=== PATIENT | male | born 1995 | race Caucasian/White ===

== ENCOUNTER 2018-11-29 15:27 | Emergency (ER) | payer OTHER, SELFPAY ==
[2018-11-29 15:31] VITALS: BP 124/80; PULSE 80; RESP 16; TEMP 36.6; O2SAT 78
--- NOTE | 2018-11-29 16:07 | ED.GENADUL_ITS ---
Discharge Plan Disposition Patient Disposition: HOME Discharge Details Chief Complaint: Laceration Clinical Impression: Laceration of hand, left ED Provider: Joe Shipley Discharge Instructions Instructions: Laceration (ED) Additional Instructions: Minimize use of left thumb until wound completely healed. Please keep dressing intact for the next 48 hours. Change dressing daily thereafter monitor for signs of infection including increased warmth, redness, discharge, pain or swelling. Return to the ED for suture removal in 12 days. Please contact your primary care physician to arrange follow-up. Return to the ER for any worsening or new concerning symptoms. Medical Decision Making 16:10 -- 23-year-old male here with laceration to dorsal left thumb over MCP with extension into fibrous tissue suspect tendon versus joint capsule. Plan to discuss with orthopedics. I will apply LET. --Patient evaluated by orthopedics, Dr. Last, no tendon laceration. Recommends primary closure of skin. Skin closed after copious sterile irrigation with local anesthetic. No complications. Usual and customary discharge instructions were provided. HPI General Mode of arrival: ambulatory . Date/Time Provider Initiated Documentation: 11/29/18 16:06 . Limitations to Documentation: no limitations . Information obtained by: patient . HPI Narrative: 23-year-old male presents with chief complaint of laceration. Patient notes he was sharpening a knife and knife accidentally slipped and cut his left dorsal thumb. This occurred just prior to arrival. Wound is been bleeding. Bleeding improved with dressing. He has some associated numbness of the finger that he attributes to pressure being held over dressing. He denies weakness. Unsure of last tetanus. Related Data Allergies Allergy/AdvReac Type Severity Reaction Status Date / Time methylphenidate HCl Allergy Intermediate Skin Rash Unverified 11/29/18 15:48 [From Concerta] General Stated Complaint: Laceration GILBERTO: 3 Review of Systems Musculoskeletal Musculoskeletal: Reports as per HPI Integumentary/Breasts Skin/Breast: Reports as per HPI [facility] Social History Smoking/Tobacco Use Status: Former Tobacco Use Drug use: Never Do you feel safe in your relationship?: Yes Exam Const General: cooperative and healthy appearing Orientation: alert Skin Trauma: laceration (curved left 1st dorsal MCP extends into tendon) Extrem Left upper extremity: hand Details: neurosensory exam normal, tendon exam abnormal (ext thumb weak) and laceration (see above) Course Vital Signs Vital signs: Vital Signs Temperature 36.6 C 11/29/18 15:31 Pulse 80 11/29/18 15:31 Respiratory Rate 16 11/29/18 15:31 Blood Pressure 124/80 11/29/18 15:31 Pulse Oximetry 78 L 11/29/18 15:31 Temperature 36.6 C 11/29/18 15:31 Pulse 80 11/29/18 15:31 Respiratory Rate 16 11/29/18 15:31 Respiratory Effort 11/29/18 15:46 Blood Pressure 124/80 11/29/18 15:31 Pulse Oximetry 78 L 11/29/18 15:31 Oxygen Delivery Method Room Air 11/29/18 15:31 Oxygen Flow Rate 0 11/29/18 15:31 Procedures Laceration Laceration 1: Site: hand Side (If applicable): left Size (cm): 2 Description: flap Depth: simple, single layer Local Anesthetic: Lidocaine 1% Amount of anesthesia used (mL): 2 Pre-repair: wound explored and irrigated extensively Skin layer closed with: other (prolene) Size (cm): 5-0 Number of sutures: 8 Technique: simple, interrupted
--- NOTE | 2018-11-29 16:22 | OCONE_ITS ---
Date of service: 11/29/18 Time of Service: 16:22 History of Present Illness History of Present Illness Chief Complaint: Left Thumb Laceration Narrative: Gulshan is a 23-year-old who was sharpening a knife today. While he was sharpening it slipped and accidentally struck the dorsum of his left thumb. He had immediate laceration with some bleeding. He presented to the emergency department for evaluation. He reports some decreased sensation of the dorsum of the thumb. He has been able to move it fully. Bleeding has been controlled. Consult Reason Left Thumb Laceration Assessment and Plan Assessment and plan (1) Laceration of left thumb: Status: Acute Assessment and plan: Gulshan is a 23-year-old who accidentally lacerated the dorsum of his left thumb. There is a full-thickness laceration all the way down to the retinaculum around the MCP joint. Fortunately, it was just radial to the EPB tendon as well as the EPL tendon. There is a small laceration of the extensor retinaculum, harp, at this level but it does not interfere with thumb motion. Given the trauma to this area I would not recommend closing this is a separate layer as this will lead to some stiffness. I recommend aggressive irrigation of the wound. The skin can be loosely closed and he may begin gentle range of motion as tolerated. Qualifiers: Encounter type: initial encounter Damage to nail status: without damage Foreign body presence: without foreign body Qualified Code(s): S61.012A - Laceration without foreign body of left thumb without damage to nail, initial encounter Review of Systems Review of Systems ROS Unobtainable: All systems reviewed & are unremarkable except as noted in HPI and below [facility] Social History Smoking/Tobacco Use Status: Former Tobacco Use Drug use: Never Do you feel safe in your relationship?: Yes Exam Narrative Exam Narrative: Gulshan is resting comfortably in exam chair. There is no active bleeding from his left thumb. There is a notable flap with a laceration with an angle of about 90 degrees within it. The flap is full-thickness including some cutaneous fat. There is underlying retinaculum which appears to be lacerated but the EPB and EPL tendon are intact by clinical examination and by some limited direct visualization. There is no exposed joint. The thumb is stable to varus and valgus stress. 5 out of 5 extension strength at the MCP and IP joint. There is some decreased sensation over the dorsum and the dorsal radial aspect of the thumb. Results Last Vital Signs Temp 36.6 C 11/29/18 15:31 Pulse 80 11/29/18 15:31 Resp 16 11/29/18 15:31 BP 124/80 11/29/18 15:31 Pulse Ox 78 L 11/29/18 15:31
[2018-11-29] MEDS: Lidocaine/Epinephri/Tetracaine Topical Gel 3 ML TP (16:23)
[2018-11-29 17:31] VITALS: BP 124/80; PULSE 80; RESP 16; TEMP 36.6; O2SAT 78
== END 2018-11-29 17:32 | disposition home or self-care (01) ==
PROVIDERS: Emergency Provider Student in an Organized Health Care Education/Training Program; PCP Nurse Practitioner Family
DX: S61.012A Laceration without foreign body of left thumb without damage to nail, initial encounter (principal); W26.0XXA Contact with knife, initial encounter
CPT/HCPCS: 12001; 99253

== ENCOUNTER → 2019-12-30 12:41 | Outpatient (REF) | payer SELFPAY ==
[2019-12-30 18:02] LABS: HCT 44.5 % (40.0-50.0); HGB 14.2 g/dL (13.5-17.5); MCH 30.3 pg (27.0-33.0); MCHC 31.9 % (32.0-36.0); MCV 94.9 fL (80-95); MPV 12.6 fL (8.0-11.0); Platelet Count 167 10^3/uL (130-400); RBC 4.69 10^6/uL (4.36-5.78); RDW 12.8 % (11.8-14.1); RDW-SD 44.1 fL; WBC 5.99 10^3/uL (4.4-10.8)
[2019-12-30 18:12] LABS: ALT 25 U/L (16-63); AST 17 U/L (15-37); Albumin 4.6 g/dL (3.4-5.0); Alkaline Phosphatase 39 U/L (46-116); Anion Gap 7.9 mmol/L (3-11); BUN 12 mg/dL (7-18); Bilirubin, Total 0.2 mg/dL (0.2-1.0); CO2 31.1 mmol/L (21.0-32.0); CREATININE 0.81 mg/dL (0.70-1.30); Calcium 9.4 mg/dL (8.5-10.1); Calculated LDL 142 mg/dL (<100); Chloride 104 mmol/L (98-107); Cholesterol 207 mg/dL (<200); Glucose 72 mg/dL (74-106); HDL Cholesterol 54 mg/dL (40-60); Potassium 4.4 mmol/L (3.5-5.1); Sodium 143 mmol/L (136-145); Total Protein 7.6 g/dL (6.4-8.2); Triglyceride 56 mg/dL (<150)
[2020-01-01 11:59] LABS: HIV-1/2 Ag & Ab Screen Negative (Negative)
[2020-01-01 12:11] LABS: Hepatitis C Ab w Rflx HCV PCR Negative (Negative)
== END ==
LOC: NCHCN 12:41
PROVIDERS: PCP Nurse Practitioner Family; Visit Provider Nurse Practitioner Family
DX: Z00.00 Encounter for general adult medical examination without abnormal findings (principal); Z82.49 Family history of ischemic heart disease and other diseases of the circulatory system; Z13.220 Encounter for screening for lipoid disorders; Z11.59 Encounter for screening for other viral diseases; Z11.4 Encounter for screening for human immunodeficiency virus [HIV]
CPT/HCPCS: 80053; 80061; 85027; 86803; 87389

== ENCOUNTER 2020-10-02 20:13 | Outpatient (REF) | payer BC, SELFPAY ==
[2020-10-04 10:32] LABS: COVID-19 RT-PCR UVMMC Result Negative (Negative)
== END 2020-10-02 20:14 | disposition home or self-care (01) ==
LOC: LBN 20:13
PROVIDERS: PCP Nurse Practitioner Family; Visit Provider Physician Assistant Medical
DX: J02.9 Acute pharyngitis, unspecified (principal); Z20.822 Contact with and (suspected) exposure to COVID-19
CPT/HCPCS: U0003; 87070

== ENCOUNTER 2021-05-13 15:18 | Outpatient (REF) | payer BC, SELFPAY ==
[2021-05-13 18:30] LABS: Abs Immature Grans 0.02 10^3/uL (0.0-0.06); Absolute Basophil Count 0.02 10^3/uL (0.0-0.2); Absolute Eosinophil Count 0.04 10^3/uL (0.0-0.7); Absolute Lymphocyte Count 2.68 10^3/uL (1.2-3.4); Absolute Monocyte Count 0.52 10^3/uL (0.1-0.8); Absolute Neutrophil Count 3.72 10^3/uL (1.2-6.7); Basophils % 0.3; Eosinophils % 0.6; HCT 46.7 % (40.0-50.0); HGB 15.4 g/dL (13.5-17.5); Immature Grans % 0.3; Lymphocytes % 38.3; MCH 29.8 pg (27.0-33.0); MCV 90.3 fL (80-95); MPV 11.9 fL (8.0-11.0); Monocytes % 7.4; Neutrophils % 53.1; Nucleated RBC 0 %; Platelet Count 169 10^3/uL (130-400); RBC 5.17 10^6/uL (4.36-5.78); RDW 12.6 % (11.8-14.1); RDW-SD 41.9 fL
[2021-05-13 18:41] LABS: ALT 25 U/L (16-63); AST 18 U/L (15-37); Albumin 4.4 g/dL (3.4-5.0); Alkaline Phosphatase 51 U/L (46-116); Anion Gap 9.3 mmol/L (3-11); BUN 11 mg/dL (7-18); Bilirubin, Total 0.4 mg/dL (0.2-1.0); CO2 26.7 mmol/L (21.0-32.0); CREATININE 0.7 mg/dL (0.70-1.30); Calcium 9.1 mg/dL (8.5-10.1); Chloride 104 mmol/L (98-107); Glucose 105 mg/dL (74-106); LDL CHOLESTEROL 90 mg/dL (<100); Potassium 3.7 mmol/L (3.5-5.1); Sodium 140 mmol/L (136-145); Total Protein 7.1 g/dL (6.4-8.2)
[2021-05-13 19:35] LABS: C-Reactive Protein 0.09 mg/dL (0.0-0.3)
[2021-05-14 09:31] LABS: ESR 2 mm/hr (0-15)
[2021-05-14 09:53] LABS: TSH 0.85 uIU/mL (0.36-3.74)
[2021-05-16 14:31] LABS: Syphilis Serology (RPR) Negative (Negative)
== END 2021-05-13 15:19 | disposition home or self-care (01) ==
LOC: NCHCN 15:18
PROVIDERS: PCP Nurse Practitioner Family; Visit Provider Nurse Practitioner Family
DX: Z00.00 Encounter for general adult medical examination without abnormal findings (principal); R21 Rash and other nonspecific skin eruption
CPT/HCPCS: 80053; 83721; 85652; 84443; 85025; 86140; 86592

== ENCOUNTER 2021-10-25 12:02 | Outpatient (CLI) | payer BC, SELFPAY ==
[2021-10-25] MEDS: Albuterol HFA 18 GM 200 PUFF INH IH (18:15)
[2021-10-25] MEDS: Methacholine 100 MG VIAL IH (18:15)
[2021-10-25] MEDS: Inhaler, Assist Device 1 EACH MC (18:15)
--- NOTE | 2021-10-26 07:29 | W.PFT ---
Date of service: 10/25/21 Time of Service: 14:59 Pulmonary Function Test Result Requesting Provider Krys Gonzalez Indications: Asthma Interpretation Spirometry: There is no airflow limitation. There is a negative methacholine challenge test. Lung Volumes: Normal lung volumes. Diffusion Capacity: Corrected diffusion is borderline low. Airway Pressure: Normal airways resistance. Impression Likely normal pulmonary function testing with a negative methacholine challenge testing. Borderline low corrected diffusion. Isolated diffusion deficits could represent emphysema or pulmonary vascular disease. Can consider echocardiogram for further assessment to rule out pulmonary hypertension. Clinical Correlation therefore is recommended.
--- NOTE | 2021-10-29 15:41 | W.PFT ---
Date of service: 10/25/21 Time of Service: 14:59 Pulmonary Function Test Result Clinical Correlation therefore is recommended.
== END 2021-10-25 12:03 | disposition home or self-care (01) ==
PROVIDERS: PCP Nurse Practitioner Family; Visit Provider Nurse Practitioner Family
DX: R94.2 Abnormal results of pulmonary function studies (principal); J45.20 Mild intermittent asthma, uncomplicated; Z72.0 Tobacco use
CPT/HCPCS: 94060; 94070; 94726; 94729; 94010; J7674